=== PATIENT | male | born 2000 | race African-American/Black ===

== ENCOUNTER 2023-10-02 08:48 | Emergency (ER) | payer MEDICAID ==
[~2023-10-02] VITALS: Ht 177.8 cm; Wt 70.3 kg
[2023-10-02 09:00] VITALS: BP 116/59; PULSE 100; RESP 16; TEMP 98.4; O2SAT 100
[2023-10-02] MEDS ORDERED: P20 MT (09:08)
[2023-10-02] MEDS ORDERED: POLY15DR31 RIGHTEYE (09:08)
[2023-10-02] MEDS ORDERED: VALA100044 MT (09:08)
== END 2023-10-02 09:29 | disposition home or self-care (01) ==
LOC: ER 09:25
DX: G51.0 Bell's palsy (principal)
CPT/HCPCS: 99283